=== PATIENT | male | born 1955 | race Caucasian/White ===

== ENCOUNTER 2018-06-10 10:30 | Outpatient (CLI) | payer OTHER ==
[~2018-06-10 10:30] MED LIST: ASA81 MG PO; ASPIR-LOW81 MG; GLIPIZIDE10 MG PO; GLUCOTROL10 MG; JANUMET 50-5001 EACH PO; JANUMET XR 50-1 EAC1; SIMVASTATIN20 MG; TAMS0.4C; TAMS0.4C PO; ZANTAC150 M3 PO; ZOCOR20 MG PO; [UNRECOGNIZED DRUG - REMARK]
== END 2018-06-10 10:33 | disposition home or self-care (01) ==
LOC: RAD 10:30 → LAB 10:30 → RAD 10:33
DX: E11.65 Type 2 diabetes mellitus with hyperglycemia (principal); I12.9 Hypertensive chronic kidney disease with stage 1 through stage 4 chronic kidney disease, or unspecified chronic kidney disease; E78.9 Disorder of lipoprotein metabolism, unspecified; Z12.11 Encounter for screening for malignant neoplasm of colon; S99.821A Other specified injuries of right foot, initial encounter

== ENCOUNTER 2018-06-11 09:44 | Outpatient (CLI) | payer OTHER | END 2018-06-11 09:49 | disposition home or self-care (01) | LOC: LAB 09:44 | DX: E11.69 Type 2 diabetes mellitus with other specified complication (principal); I12.9 Hypertensive chronic kidney disease with stage 1 through stage 4 chronic kidney disease, or unspecified chronic kidney disease; E78.1 Pure hyperglyceridemia; Z12.11 Encounter for screening for malignant neoplasm of colon ==

== ENCOUNTER 2018-12-05 16:05 | Outpatient (CLI) | payer OTHER | END 2018-12-05 16:15 | disposition home or self-care (01) | LOC: LAB 16:05 → EKG 16:05 | DX: R94.31 Abnormal electrocardiogram [ECG] [EKG] (principal) ==

== ENCOUNTER 2019-01-26 12:56 | Inpatient (IN) | payer OTHER ==
[~2019-01-26] VITALS: Ht 165.1 cm; Wt 90.7 kg
== END 2019-02-03 09:04 | disposition home or self-care (01) | DRG 714 ==
LOC: O/R 02-01 05:30 → OB/GYN 02-01 12:30 → SURG 02-01 18:15
PROVIDERS: ADMIT Urology
PROC: 0VT08ZZ Resection of Prostate, Via Natural or Artificial Opening Endoscopic (ICD-10-PCS; principal; 2019-02-01 12:30)
DX: N40.1 Benign prostatic hyperplasia with lower urinary tract symptoms (principal); R33.8 Other retention of urine